=== PATIENT | male | born 1970 | race Caucasian/White ===

== ENCOUNTER 2020-03-02 06:24 | Day surgery (SDC) | payer OTHER, SELFPAY ==
[2020-02-27 12:23] VITALS: BMI 43.7
[2020-03-02 06:50] VITALS: BP 147/71; PULSE 56; RESP 20; TEMP 36.9; O2SAT 98
[2020-03-02] MEDS: sodium chloride 0.9% 1,000 ML 30 ML IV (06:55)
--- NOTE | 2020-03-02 07:23 | W.PM.OPSFHP ---
Same Day Surgery H&P Indication for Procedure/HPI DATE OF PROCEDURE: March 02, 2020 CHIEF COMPLAINT/INDICATIONFOR SURGICAL PROCEDURE: screening PREOP DIAGNOSIS: screening PLANNED PROCEDRUE: Operation Date: 03/02/20 07:30 Proposed Procedures p Colonoscopy(Not Applicable) - Ameya Mckeon MD Medications/Allergies* Home Medications Medication Instructions Recorded Confirmed Type pregabalin 150 mg capsule 150 mg PO BID 01/05/20 03/02/20 History bupropion HCl 300 mg 24 hr tablet, 300 mg PO QAM 01/06/20 03/02/20 History extended release hydrochlorothiazide 25 mg tablet 25 mg PO DAILY 01/06/20 03/02/20 History lisinopril 20 mg tablet 20 mg PO DAILY 01/06/20 03/02/20 History pravastatin 20 mg tablet 20 mg PO DAILY 01/06/20 03/02/20 History topiramate 50 mg tablet 50 mg PO BID 01/06/20 03/02/20 History Allergies/Adverse Reactions Allergy/AdvReac Type Severity Reaction Status Date / Time gabapentin Allergy Unknown Verified 01/06/20 11:37 Current Medications: Generic Name Dose Route Start Last Admin Trade Name Freq PRN Reason Stop Dose Admin Sodium Chloride 1,000 mls @ 30 mls/hr 03/02/20 06:45 03/02/20 06:55 Sodium Chloride 0.9% IV 03/03/20 06:44 30 mls/hr .Q24H JENELLE Administration Pertinent History/Comorbid Conditions* Medical History (Updated 01/06/20 @ 11:52 by Ameya Mckeon MD) Diabetes History of traumatic brain injury Hyperlipidemia Hypertension PTSD (post-traumatic stress disorder) Sleep apnea Surgical History (Updated 01/06/20 @ 11:52 by Ameya Mckeon MD) History of knee surgery LEFT History of shoulder surgery Left History of surgery of head trauma Family History (Updated 01/06/20 @ 11:43 by JOSH Brantley) Denies family history of Anesthesia complication Bleeding disorder Social History Smoking and tobacco status: former smoker Pertinent Exam Findings alert and oriented x 3 Recommendations Surgery/Procedure today Coding Level of Care Code Acute [employer]
--- NOTE | 2020-03-02 07:30 | ANES.PREANE2 ---
Pre-Anesthetic Assessment Pre-Anesthetic Assessment: Height/Weight: Height 1.91 m Weight 158.757 kg Temp Pulse Resp BP Pulse Ox 98.4 F 56 L 20 H 147/71 98 03/02/20 06:50 03/02/20 06:50 03/02/20 06:50 03/02/20 06:50 03/02/20 06:50 Preop Diagnosis: screening Proposed Procedure: Operation Date: 03/02/20 07:30 Proposed Procedures p Colonoscopy(Not Applicable) - Ameya Mckeon MD Was Beta Presley taken within 24 hours: N/A Last intake: Intake Last Liquid Date 03/01/20 Last Liquid Time 22:00 Last Solid Date 02/29/20 Last Solid Time 00:00 Social: Social History: No tobacco (quit 3 yrs ago) Exam: Pre-Anes Outpt Exam: alert, oriented x 3, clear to auscultation bilaterally and regular rate & rhythm Airway: Submandibular: WNL Cervical ROM: WNL MP: 3 Dentition: False History/ROS: No significant history except as noted Pulmonary: Pulmonary: Sleep apnea CV/HEM: CV/HEM: HTN Comments: negative stress test. EKG shows BBB : : None reported Hepatic: Hepatic: None reported GI: GI: None reported Metabolic: Metabolic: DM and Morbid obesity Musc/skel: Musc/skel: Lower Back Pain and OA/DJD Neuropsych: Neuropsych: None reported Anesthetic Plan: ASA status: 3 Risk of > 500 ml blood loss (7ml/kg in children): No Meds/Allergies Current Medications: Current Medications Generic Name Dose Route Start Last Admin Trade Name Freq PRN Reason Stop Dose Admin Sodium Chloride 1,000 mls @ 30 ml s/hr 03/02/20 06:45 03/02/20 06:55 Sodium Chloride 0.9% IV 03/03/20 06:44 30 mls/hr .Q24H JENELLE Administration PFSH Anesthesia PFSH: Medical History (Updated 03/02/20 @ 07:55 by Ameya Mckeon MD) Colon polyps Diabetes History of traumatic brain injury Hyperlipidemia Hypertension PTSD (post-traumatic stress disorder) Sleep apnea Surgical History (Updated 03/02/20 @ 07:55 by Ameya Mckeon MD) History of knee surgery LEFT History of shoulder surgery Left History of surgery of head trauma Status post colonoscopy with polypectomy (03/02/20) Family History Denies family history of Anesthesia complication Bleeding disorder Social History Smoking and tobacco status: former smoker Data Anesthesia Cardiac Studies: No Data to Display
[2020-03-02 07:58] VITALS: BP 142/81; PULSE 69; RESP 20; TEMP 36.8; O2SAT 97
--- NOTE | 2020-03-02 08:02 | ANE.PACU2 ---
Inpatient post-anesthesia follow up: Airway intact: Yes Vital signs: Temperature 98.3 F Pulse Rate 69 Respiratory Rate 20 Blood Pressure 142/81 Pulse Oximetry 97 Oxygen Delivery Me thod Room Air Oxygen Flow Rate Fraction of Inspir ed Oxygen Hydration adequate: Yes Nausea and vomiting: No Mental status: Baseline
[2020-03-02 08:05] VITALS: BP 135/72; PULSE 64; RESP 20; O2SAT 97
== END 2020-03-02 08:11 | disposition home or self-care (01) ==
PROVIDERS: PCP Emergency Medicine Emergency Medical Services; Visit Provider Surgery
PROC: 0DJD8ZZ Inspection of Lower Intestinal Tract, Via Natural or Artificial Opening Endoscopic (ICD-10-PCS; CPT 45378; principal; 2020-03-02 07:30)
DX: Z12.11 Encounter for screening for malignant neoplasm of colon (principal); D12.5 Benign neoplasm of sigmoid colon; G47.30 Sleep apnea, unspecified; I10 Essential (primary) hypertension; E11.9 Type 2 diabetes mellitus without complications; E66.01 Morbid (severe) obesity due to excess calories; Z68.41 Body mass index [BMI] 40.0-44.9, adult; M19.90 Unspecified osteoarthritis, unspecified site; E78.5 Hyperlipidemia, unspecified; Z87.891 Personal history of nicotine dependence
CPT/HCPCS: 12345; 45385; 88305; J2704; J7030

== ENCOUNTER → 2025-01-16 09:52 | Outpatient (BNVA) | payer OTHER, SELFPAY | PROVIDERS: PCP Emergency Medicine Emergency Medical Services; Visit Provider Orthopaedic Surgery | DX: M17.12 Unilateral primary osteoarthritis, left knee (principal); M25.762 Osteophyte, left knee; G89.29 Other chronic pain | CPT/HCPCS: 20610; 73560; 73565; 99204; J3301; J3490; J9999 ==

== ENCOUNTER → 2025-01-21 09:59 | Outpatient (BNVA) | payer OTHER, SELFPAY | PROVIDERS: PCP Nurse Practitioner; Visit Provider Podiatrist Foot & Ankle Surgery | DX: M20.11 Hallux valgus (acquired), right foot (principal); M20.12 Hallux valgus (acquired), left foot; G62.9 Polyneuropathy, unspecified; M21.611 Bunion of right foot; M21.612 Bunion of left foot | CPT/HCPCS: 99203 ==

== ENCOUNTER 2025-01-22 05:00 | Outpatient (RCR) | payer OTHER, SELFPAY | END 2025-02-21 23:55 | disposition home or self-care (01) | LOC: TPT 05:00 | PROVIDERS: Visit Provider Orthopaedic Surgery | DX: M25.562 Pain in left knee (principal) | CPT/HCPCS: 97110; 97161 ==

== ENCOUNTER → 2025-01-26 10:27 | Outpatient (BNVA) | payer OTHER, SELFPAY | PROVIDERS: PCP Nurse Practitioner; Visit Provider Orthopaedic Surgery | DX: M25.562 Pain in left knee (principal); G89.29 Other chronic pain | CPT/HCPCS: 99213 ==

== ENCOUNTER → 2025-02-23 09:59 | Outpatient (BNVA) | payer OTHER, SELFPAY | PROVIDERS: Visit Provider Orthopaedic Surgery | DX: M25.562 Pain in left knee (principal); G89.29 Other chronic pain | CPT/HCPCS: 99213 ==

== ENCOUNTER → 2025-05-21 10:48 | Outpatient (BNVA) | payer OTHER, SELFPAY | PROVIDERS: Visit Provider Orthopaedic Surgery | DX: M25.562 Pain in left knee (principal) | CPT/HCPCS: 20610; 99213; J3301; J3490; J9999 ==

== ENCOUNTER → 2025-05-27 10:32 | Outpatient (BNVA) | payer OTHER, SELFPAY | PROVIDERS: Visit Provider Podiatrist Foot & Ankle Surgery | DX: G62.9 Polyneuropathy, unspecified (principal); M21.611 Bunion of right foot; M21.612 Bunion of left foot; M20.11 Hallux valgus (acquired), right foot; M20.12 Hallux valgus (acquired), left foot | CPT/HCPCS: 99213 ==

== ENCOUNTER → 2025-08-27 11:03 | Outpatient (BNVA) | payer OTHER, SELFPAY | PROVIDERS: Visit Provider Orthopaedic Surgery | DX: M25.562 Pain in left knee (principal); G89.29 Other chronic pain | CPT/HCPCS: 20610; 99213 ==